=== PATIENT | male | born 1965 | race Caucasian/White ===

== ENCOUNTER 2018-10-08 07:43 | Emergency (ER) | payer BC ==
[~2018-10-08] VITALS: Ht 190.5 cm; Wt 84.1 kg
[~2018-10-08 07:43] MED LIST: DIAZ5TAB PO; ONDA4TAB6 PO; PANT-47 PO
--- NOTE | 2018-10-08 08:03 | NUR ---
MD IS IN ROOM WITH A CODE 3. CHARGE NURSE WAS SHOWN THE EKG AND MADE AWARE.
[2018-10-08] MEDS ORDERED: LORazepam 2 mg/ml vial IV ONE (08:25)
[2018-10-08] MEDS ORDERED: normal saline 1000ML IV soln IVB ONE (08:25)
[2018-10-08] MEDS ORDERED: proCHLORperazine 10 MG/2 ml inj IV ONE (08:25)
[2018-10-08] MEDS ORDERED: pantoprazole 40 MG vial IV ONE (08:25)
[2018-10-08 08:53] LABS: BASOPHILS # (AUTO) 0.1 X10'3 (0-0.2); BASOPHILS % (AUTO) 0.5 % (0-1); EOSINOPHILS # (AUTO) 0.1 X10'3 (0-0.9); EOSINOPHILS % (AUTO) 0.5 % (0-6); HEMOGLOBIN 15.4 g/dl (14.0-17.9); LYMPHOCYTES # (AUTO) 0.8 X10'3 (1.1-4.8); LYMPHOCYTES % (AUTO) 6.1 % (21-51); MEAN CORPUSCULAR HEMOGLOBIN 36.3 PG (27.0-31.0); MEAN CORPUSCULAR HGB CONC 34.3 g/dL (33.0-36.5); MEAN CORPUSCULAR VOLUME 106.1 FL (78-98); MEAN PLATELET VOLUME 7.5 FL (7.4-10.4); MONOCYTES % (AUTO) 7.9 % (2-12); NEUTROPHILS # (AUTO) 10.6 X10'3 (1.8-7.7); PLATELET COUNT 126 X10'3 (140-440); RED BLOOD COUNT 4.24 X10'6 (4.70-6.10); RED CELL DISTRIBUTION WIDTH 13.6 % (11.5-14.5); WHITE BLOOD COUNT 12.5 X10'3 (4.5-11.0)
[2018-10-08 09:06] LABS: PARTIAL THROMBOPLASTIN TIME 25 SECONDS (22-32)
[2018-10-08 09:09] LABS: ALANINE AMINOTRANSFERASE 63 U/L (12-78); ALBUMIN 3.6 G/DL (3.4-5.0); ALBUMIN/GLOBULIN RATIO 0.9 (1.1-1.5); ALKALINE PHOSPHATASE 139 IU/L (46-116); ANION GAP 12 (8-16); ASPARTATE AMINO TRANSFERASE 176 U/L (10-37); BILIRUBIN,TOTAL 3.1 MG/DL (0.1-1.0); BLOOD UREA NITROGEN 6 MG/DL (7-18); BUN/CREATININE RATIO 10.2 (5.4-32.0); CALCIUM 8.8 MG/DL (8.5-10.1); CHLORIDE 100 MMOL/L (99-107); CREATININE 0.59 MG/DL (0.60-1.10); GLUCOSE 125 MG/DL (70-104); MAGNESIUM 1.2 MG/DL (1.5-2.4); POTASSIUM 3.9 MMOL/L (3.5-5.1); SODIUM 137 MMOL/L (135-145); TOTAL CARBON DIOXIDE 25.4 MMOL/L (24-32); TOTAL PROTEIN 7.7 G/DL (6.4-8.2); eGFR > 90 ML/MIN
[2018-10-08] MEDS ORDERED: magnesium oxide 400mg tablet PO ONE (09:30)
[2018-10-08] MEDS ORDERED: ONDA4TAB6 PO (10:21)
[2018-10-08 10:42] VITALS: BP 127/88
== END 2018-10-08 10:44 | disposition home or self-care (01) ==
LOC: ER 07:44
DX: F10.239 Alcohol dependence with withdrawal, unspecified (principal); R11.2 Nausea with vomiting, unspecified; R94.5 Abnormal results of liver function studies; R10.13 Epigastric pain; I10 Essential (primary) hypertension; Z88.5 Allergy status to narcotic agent; Z79.899 Other long term (current) drug therapy; Y90.9 Presence of alcohol in blood, level not specified
CPT/HCPCS: 36415; 71045; 80053; 83735; 84484; 85025; 85610; 85730; 93005; 96361; 96374; 96375; 99284; C9113; J0780; J2060; J7030

== ENCOUNTER 2019-08-18 12:16 | Inpatient (IN) | payer BC ==
[~2019-08-18] VITALS: Ht 190.5 cm; Wt 81.0 kg
[2019-08-18 13:35] LABS: BASOPHILS % (AUTO) 0.3 % (0-1); EOSINOPHILS % (AUTO) 0.5 % (0-6); HEMATOCRIT 40.1 % (42.0-52.0); HEMOGLOBIN 13.7 g/dl (14.0-17.9); LYMPHOCYTES # (AUTO) 0.8 X10'3 (1.1-4.8); MEAN CORPUSCULAR HEMOGLOBIN 33.4 PG (27.0-31.0); MEAN CORPUSCULAR HGB CONC 34.2 g/dL (33.0-36.5); MEAN CORPUSCULAR VOLUME 97.5 FL (78-98); MEAN PLATELET VOLUME 9.6 FL (7.4-10.4); MONOCYTES # (AUTO) 0.8 X10'3 (0-0.9); MONOCYTES % (AUTO) 11.1 % (2-12); NEUTROPHILS # (AUTO) 5.4 X10'3 (1.8-7.7); NEUTROPHILS % (AUTO) 77.1 % (42-75); RED BLOOD COUNT 4.12 X10'6 (4.70-6.10); RED CELL DISTRIBUTION WIDTH 14.7 % (11.5-14.5)
[2019-08-18 13:44] LABS: ALANINE AMINOTRANSFERASE 105 U/L (12-78); ALBUMIN 3.9 G/DL (3.4-5.0); ALKALINE PHOSPHATASE 132 IU/L (46-116); ANION GAP 10 (8-16); ASPARTATE AMINO TRANSFERASE 221 U/L (10-37); BILIRUBIN,TOTAL 3.3 MG/DL (0.1-1.0); BLOOD UREA NITROGEN 6 MG/DL (7-18); BUN/CREATININE RATIO 5.1 (5.4-32.0); CALCIUM 9.3 MG/DL (8.5-10.1); CHLORIDE 94 MMOL/L (99-107); CREATINE KINASE 679 U/L (39-308); CREATININE 1.18 MG/DL (0.60-1.10); GLUCOSE 162 MG/DL (70-104); SODIUM 135 MMOL/L (135-145); TOTAL CARBON DIOXIDE 30.7 MMOL/L (24-32); TOTAL PROTEIN 7.8 G/DL (6.4-8.2); eGFR 65 ML/MIN
[2019-08-18 13:46] LABS: POTASSIUM 2.7 MMOL/L (3.5-5.1)
[2019-08-18 14:00] VITALS: BP 117/78
[2019-08-18] MEDS ORDERED: potassium Cl 20 mEq SR tablet PO ONE (14:10)
[2019-08-18] MEDS ORDERED: potassium Cl 10 mEq/100mL bag IV ONE (14:10)
[2019-08-18 14:13] LABS: PLATELET COUNT 38 X10'3 (140-440)
[2019-08-18 14:18] LABS: TOTAL CELLS COUNTED 100
[2019-08-18 14:20] LABS: PLATELET ESTIMATE DECREASED
--- NOTE | 2019-08-18 14:22 | NUR ---
PT assisted to w/c to transport to CT scan. CT staff are aware of the patient's fall risk status.
[2019-08-18 14:30] LABS: MAGNESIUM 0.9 MG/DL (1.5-2.4)
[2019-08-18] MEDS ORDERED: LORazepam 2 mg/ml vial IV ONE (14:30)
--- NOTE | 2019-08-18 14:30 | NUR ---
Pt return from CT scan via w/c.
[2019-08-18] MEDS ORDERED: magnesium 2GM in 50ml NS 50 ML IV ONE (14:35)
[2019-08-18] MEDS ORDERED: NO HOME MEDS (14:53)
[2019-08-18] MEDS: normal saline 1000ml 1,000 ML IV SCH (14:58)
[2019-08-18] MEDS ORDERED: dextrose 50%-water 50ml dispensing syringe IV PRN (15:00)
[2019-08-18] MEDS ORDERED: magnesium hydroxide 30ml (MOM) UD suspension PO PRN (15:00)
[2019-08-18] MEDS ORDERED: haloperidol lactate 5mg/ml inj IM PRN (15:00)
[2019-08-18] MEDS ORDERED: potassium Cl 20 mEq SR tablet PO PRN (15:00)
[2019-08-18] MEDS ORDERED: magnesium 2GM in 50ml NS 50 ML IV PRN (15:00)
[2019-08-18] MEDS ORDERED: potassium CL 10mEq/100ml bag 100 ML IV PRN ×2 (15:00)
[2019-08-18] MEDS ORDERED: mag hydrox/Alum hydrox/simeth 30ml oral suspension PO PRN (15:00)
[2019-08-18] MEDS ORDERED: metoclopramide 5 mg/ml inj IV PRN (15:00)
[2019-08-18] MEDS ORDERED: thiamine inj. 100 MG in normal saline 100ml IV soln 100 ML IV ONE (15:00)
[2019-08-18] MEDS ORDERED: magnesium Cl slow-release 64mg tablet PO PRN (15:00)
[2019-08-18] MEDS ORDERED: magnesium 4gm in 100ml NS 100 ML IV PRN (15:00)
[2019-08-18] MEDS ORDERED: haloperidol 5mg tablet PO PRN (15:00)
[2019-08-18] MEDS ORDERED: ondansetron/PF 4mg/2ml inj IV PRN (15:00)
[2019-08-18] MEDS ORDERED: LORazepam 2 mg/ml vial IV PRN (15:00)
[2019-08-18] MEDS: folic acid 1mg tablet PO SCH (16:44)
[2019-08-18] MEDS: multivitamins, therapeutics tablet PO SCH (16:44)
[2019-08-18] MEDS: thiamine 100mg tablet PO SCH (16:44)
[2019-08-18 18:00] VITALS: BP 104/71
--- NOTE | 2019-08-18 18:18 | NUR ---
Problems reprioritized. Patient report given, questions answered & plan of care reviewed with Beata AVILES.
--- NOTE | 2019-08-18 18:30 | NUR ---
Patient in room [facility]TH[facility] 4020. I have received report from Angie AVILES and had the opportunity to ask questions and assume patient care.
[2019-08-18] MEDS: potassium Cl 20 mEq SR tablet PO PRN ×2 (19:56→23:26)
[2019-08-18] MEDS: LORazepam 1 MG tablet PO PRN ×2 (20:17→23:25)
[2019-08-18] MEDS: K and/or MAG REPLACEMENT MC SCH (20:39)
--- NOTE | 2019-08-18 21:39 | NUR ---
The troponin was not continued after transfer from ER so I dc'd the last order.
[2019-08-18 22:00] VITALS: BP 123/75
[2019-08-19] MEDS: normal saline 1000ml 1,000 ML IV SCH ×3 (00:58→15:54)
[2019-08-19 02:00] VITALS: BP 108/70
[2019-08-19 03:55] LABS: BASOPHILS % (AUTO) 0.3 % (0-1); EOSINOPHILS % (AUTO) 0.7 % (0-6); HEMATOCRIT 37.1 % (42.0-52.0); HEMOGLOBIN 12.5 g/dl (14.0-17.9); LYMPHOCYTES # (AUTO) 1.1 X10'3 (1.1-4.8); LYMPHOCYTES % (AUTO) 18.4 % (21-51); MEAN CORPUSCULAR HEMOGLOBIN 33.3 PG (27.0-31.0); MEAN CORPUSCULAR HGB CONC 33.6 g/dL (33.0-36.5); MEAN CORPUSCULAR VOLUME 99.1 FL (78-98); MEAN PLATELET VOLUME 10.5 FL (7.4-10.4); MONOCYTES # (AUTO) 0.8 X10'3 (0-0.9); MONOCYTES % (AUTO) 12.8 % (2-12); NEUTROPHILS # (AUTO) 4.2 X10'3 (1.8-7.7); NEUTROPHILS % (AUTO) 67.8 % (42-75); RED BLOOD COUNT 3.74 X10'6 (4.70-6.10); RED CELL DISTRIBUTION WIDTH 14.7 % (11.5-14.5); WHITE BLOOD COUNT 6.1 X10'3 (4.5-11.0)
[2019-08-19 04:01] LABS: PLATELET COUNT 37 X10'3 (140-440)
--- NOTE | 2019-08-19 04:03 | NUR ---
Critical result: plt 37. Called Dr. Romero and gave him critical result. No change in orders.
[2019-08-19 04:17] LABS: ALANINE AMINOTRANSFERASE 106 U/L (12-78); ALBUMIN 3.6 G/DL (3.4-5.0); ALKALINE PHOSPHATASE 117 IU/L (46-116); ANION GAP 6 (8-16); ASPARTATE AMINO TRANSFERASE 243 U/L (10-37); BILIRUBIN,TOTAL 3.1 MG/DL (0.1-1.0); BLOOD UREA NITROGEN 5 MG/DL (7-18); BUN/CREATININE RATIO 5.6 (5.4-32.0); CALCIUM 8.4 MG/DL (8.5-10.1); CHLORIDE 100 MMOL/L (99-107); CREATININE 0.89 MG/DL (0.60-1.10); GLUCOSE 99 MG/DL (70-104); MAGNESIUM 2.3 MG/DL (1.5-2.4); POTASSIUM 3.8 MMOL/L (3.5-5.1); SODIUM 138 MMOL/L (135-145); TOTAL CARBON DIOXIDE 31.8 MMOL/L (24-32); TOTAL PROTEIN 7.1 G/DL (6.4-8.2); eGFR 89 ML/MIN
[2019-08-19 06:00] VITALS: BP 116/79
--- NOTE | 2019-08-19 06:20 | NUR ---
Problems reprioritized. Patient report given, questions answered & plan of care reviewed with Angie AVILES.
[2019-08-19] MEDS: folic acid 1mg tablet PO SCH (07:17)
[2019-08-19] MEDS: multivitamins, therapeutics tablet PO SCH (07:17)
[2019-08-19] MEDS: LORazepam 1 MG tablet PO PRN ×2 (07:17→15:50)
[2019-08-19] MEDS: thiamine 100mg tablet PO SCH (07:17)
[2019-08-19] MEDS: K and/or MAG REPLACEMENT MC SCH ×2 (07:49→20:00)
[2019-08-19] MEDS ORDERED: folic acid inj. 2 MG, thiamine inj. 100 MG, MVI, adult No.4 with vit. K 10 ML in dextro... IV SCH ×4 (08:00)
[2019-08-19 10:00] VITALS: BP 110/69
--- NOTE | 2019-08-19 10:33 | NUR ---
Malnutrition consult: Pt reports 24-33 lb wt loss with decreased appetite per malnutrition risk screen with RN. 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 Pt receiving routine Thiamine, Folic acid, and MVI at this time. Patient's current scaled weight is appropriate and stable with wt hx. Pt on a regular diet documented with 75-100% PO intake meeting nutrient needs. Pt with no documented decrease in muscle strength or edema. Appears well developed, well nourished per H&P. Pt currently lacks a minimum of two criteria for malnutrition. Will continue to follow. Addendum: 08/19/19 at [address] Amended: Links added.
--- NOTE | 2019-08-19 11:38 | NUR ---
Paged transportation engineering technician: [id number] Juan Pathak- New order for an EEG. Thank you
[2019-08-19 18:00] VITALS: BP 119/78
--- NOTE | 2019-08-19 18:10 | NUR ---
Problems reprioritized. Patient report given, questions answered & plan of care reviewed with Beata AVILES.
[2019-08-19 22:00] VITALS: BP 109/72
[2019-08-20 06:05] LABS: BASOPHILS % (AUTO) 0.6 % (0-1); EOSINOPHILS # (AUTO) 0.1 X10'3 (0-0.9); EOSINOPHILS % (AUTO) 1.3 % (0-6); HEMATOCRIT 37.5 % (42.0-52.0); HEMOGLOBIN 12.7 g/dl (14.0-17.9); LYMPHOCYTES # (AUTO) 1.4 X10'3 (1.1-4.8); LYMPHOCYTES % (AUTO) 19.5 % (21-51); MEAN CORPUSCULAR HEMOGLOBIN 33.7 PG (27.0-31.0); MEAN CORPUSCULAR HGB CONC 33.8 g/dL (33.0-36.5); MEAN CORPUSCULAR VOLUME 99.6 FL (78-98); MEAN PLATELET VOLUME 10.8 FL (7.4-10.4); MONOCYTES % (AUTO) 13.5 % (2-12); NEUTROPHILS # (AUTO) 4.7 X10'3 (1.8-7.7); NEUTROPHILS % (AUTO) 65.1 % (42-75); PLATELET COUNT 51 X10'3 (140-440); RED BLOOD COUNT 3.77 X10'6 (4.70-6.10); RED CELL DISTRIBUTION WIDTH 14.6 % (11.5-14.5); WHITE BLOOD COUNT 7.2 X10'3 (4.5-11.0)
--- NOTE | 2019-08-20 06:34 | NUR ---
Problems reprioritized. Patient report given, questions answered & plan of care reviewed with Lubna AVILES.
[2019-08-20 06:37] LABS: ALANINE AMINOTRANSFERASE 133 U/L (12-78); ALBUMIN 3.6 G/DL (3.4-5.0); ALBUMIN/GLOBULIN RATIO 0.9 (1.1-1.5); ALKALINE PHOSPHATASE 120 IU/L (46-116); ANION GAP 9 (8-16); ASPARTATE AMINO TRANSFERASE 276 U/L (10-37); BILIRUBIN,TOTAL 2.5 MG/DL (0.1-1.0); BLOOD UREA NITROGEN 7 MG/DL (7-18); BUN/CREATININE RATIO 8.8 (5.4-32.0); CALCIUM 9.2 MG/DL (8.5-10.1); CHLORIDE 102 MMOL/L (99-107); GLUCOSE 79 MG/DL (70-104); MAGNESIUM 1.7 MG/DL (1.5-2.4); POTASSIUM 3.6 MMOL/L (3.5-5.1); SODIUM 138 MMOL/L (135-145); TOTAL CARBON DIOXIDE 26.9 MMOL/L (24-32); TOTAL PROTEIN 7.4 G/DL (6.4-8.2); eGFR > 90 ML/MIN
[2019-08-20] MEDS: normal saline 1000ml 1,000 ML IV SCH (06:58)
[2019-08-20] MEDS: K and/or MAG REPLACEMENT MC SCH (08:00)
[2019-08-20] MEDS: thiamine 100mg tablet PO SCH (09:16)
[2019-08-20] MEDS: multivitamins, therapeutics tablet PO SCH (09:17)
[2019-08-20] MEDS: folic acid 1mg tablet PO SCH (09:17)
[2019-08-20 10:00] VITALS: BP 145/90
--- NOTE | 2019-08-20 11:06 | NUR ---
PATIENT BACK FROM MRI
[2019-08-20] MEDS ORDERED: LORA-269 PO (12:04)
[2019-08-20] MEDS ORDERED: MULT-25 PO (12:04)
[2019-08-20] MEDS ORDERED: FOLI0.8C PO (12:04)
[2019-08-20] MEDS ORDERED: THIA50TA10 PO (12:04)
== END 2019-08-20 12:45 | disposition home or self-care (01) | DRG 101 ==
LOC: ER 12:17 → ED HOLD 14:58 → ORTHO 4S 15:50
PROVIDERS: ADMIT Family Medicine; ATTEND Family Medicine
PROC: 4A00X4Z Measurement of Central Nervous Electrical Activity, External Approach (ICD-10-PCS; principal; 2019-08-19)
DX: G40.89 Other seizures (principal); F10.239 Alcohol dependence with withdrawal, unspecified; G93.49 Other encephalopathy; M62.82 Rhabdomyolysis; N17.9 Acute kidney failure, unspecified; I10 Essential (primary) hypertension; F41.9 Anxiety disorder, unspecified; E83.42 Hypomagnesemia; E87.6 Hypokalemia; D69.6 Thrombocytopenia, unspecified; D64.9 Anemia, unspecified; Z79.899 Other long term (current) drug therapy
CPT/HCPCS: 36415; 70450; 71045; 76700; 80053; 82550; 83735; 84484; 85025; 87081; 93005; 95816; 97161; 97530; 99285; G0378; J2060; J3475; J3480; J7030

== ENCOUNTER 2020-05-17 12:34 | Emergency (ER) | payer BC ==
[~2020-05-17] VITALS: Ht 190.5 cm; Wt 71.2 kg
[~2020-05-17 12:34] MED LIST changes: -DIAZ5TAB PO; +FOLI0.8C PO; +LORA-269 PO; +MULT-25 PO; -ONDA4TAB6 PO; -PANT-47 PO; +THIA50TA10 PO
[2020-05-17 12:36] VITALS: BP 121/85
[2020-05-17] MEDS ORDERED: SULF1TAB49 PO (18:13)
[2020-05-17] MEDS ORDERED: MUPI22OI30 TOP (18:13)
[2020-05-17] MEDS ORDERED: mupirocin 2% ointment 22GM TP ONE (18:15)
--- NOTE | 2020-05-17 18:34 | NUR ---
UPON CHECKING ON PT I WAS INFORMED PT WAS NOT IN HIS ROOM SEVERAL TIMES OVER THE COURSE OF HIS VISIT TO THE ER. PER CLAUDY RN, PT WAS DEPARTED IN SYSTEM AFTER LAST TIME THEY CHECKED ON THE PT AND HE WAS NOT FOUND. PT IS NOW IN ROOM AWAITING DISCHARGE. PT HAS BEEN GIVEN IS PRESCRIPTIONS AND VERBALIZED UNDERSTANDING OF DISCHARGE INSTRUCTIONS. OINTMENT HAS BEEN APPLIED TO HIS NARES AND VITALS TAKEN. PT IS BEING DRIVEN HOME BY SIGNIFICANT OTHER TO HOME WHERE HE LIVES. VITALS P-87 BP-122/90 [id number] RR-18 ON RA
== END 2020-05-17 16:12 | disposition left against medical advice (07) ==
LOC: ER 12:35
DX: A49.02 Methicillin resistant Staphylococcus aureus infection, unspecified site (principal); J34.0 Abscess, furuncle and carbuncle of nose; I10 Essential (primary) hypertension; F41.9 Anxiety disorder, unspecified; Z88.5 Allergy status to narcotic agent; Z79.2 Long term (current) use of antibiotics; Z79.899 Other long term (current) drug therapy
CPT/HCPCS: 99283